=== PATIENT | female | born 1955 ===

== ENCOUNTER → 2023-07-02 | Outpatient (CLI) | payer MEDICARE, MEDICAID ==
[~2023-07-02] MED LIST: ATOR20TA66 PO; DULO60CA59 PO; HYDR-34 PO; MECL25TA3 PO; NAPR-915 PO; NF-VITD400 PO; OMEP20CA18 PO; ONDA4TAB8 PO; ONDAN4ODT PO; PERCOCET; PROC-1 PO; SERT-413 PO; TRAM-21 PO
--- NOTE | 2023-07-02 14:58 | Diagnostic Imaging Report ---
Left breast ultrasound. Indication: Left breast pain There are no prior ultrasound examinations available for comparison. The patient did have a bilateral mammogram performed on 04/10/2022 at [facility]. The report from that exam is not available at this time. By history, the patient has pain in the inferolateral aspect of the left breast and the left axilla. The ultrasound examination of this area reveals that in the 4 o'clock position approximately 7-8 cm from the nipple there is a small 3 x 3 x 3 mm oval avascular hypoechoic lesion. This has the appearance of a simple cyst. In the 5 o'clock position roughly 5 to 6 cm from the nipple there is a small 4 x 3 x 3 mm avascular hypoechoic area with internal echoes. This may represent a complicated cyst or perhaps a small solid lesion. This does not have a threatening appearance but I would recommend that a diagnostic mammogram of the left breast be performed for further evaluation. There are also a few prominent lymph nodes in the left axilla. These are mostly replaced by fat and have a generally benign appearance. These lymph nodes measure 9 x 6 x 8 mm x 16 x 8 x 16 mm. No other abnormality is noted. Impression: 1. The small hypoechoic lesion with internal echoes in the 5 o'clock position roughly 5-6 cm from the nipple is of uncertain etiology although most likely benign. A diagnostic mammogram of the left breast would be recommended for further study. The patient could also have her screening mammogram of the right breast at the same time. 2. There is no other solid mass to suggest malignancy and there is no other abnormality to account for the patient's breast pain. ACR BI-RADS Category 0: Incomplete. (Needs additional imaging evaluation). Result letter will be mailed to the patient. Note: At least 10% of breast cancer is not imaged by mammography. Dictated by: Dictated on workstation # [id number]
== END ==
LOC: RAD 11:51
PROVIDERS: ATTEND Nurse Practitioner Family
DX: N64.4 Mastodynia (principal)